=== PATIENT | female | born 1980 | race Caucasian/White ===

== ENCOUNTER 2021-02-07 15:26 | Emergency (ER) | payer MEDICARE, MEDICAID, SELFPAY ==
--- NOTE | ~2021-02-07 | XR_ITS ---
EXAMINATION: XR chest 1V portable INDICATION: Cough TECHNIQUE: Portable AP chest at 1806 hours COMPARISON: None available FINDINGS: There are patchy bilateral airspace opacities. No pleural effusion or pneumothorax is ident ified. The cardiomediastinal silhouette is normal. IMPRESSION: 1. Patchy bilateral airspace opacities, consistent with atelectasis versus pneumonia. Reviewed, dictated and finalized at location A. IMPRESSION: 1. Patchy bilateral airspace opacities, consistent with atelectasis versus pneu monia.
[2021-02-07 15:38] VITALS: BP 119/69; PULSE 98; RESP 16; TEMP 36.8; O2SAT 100
[2021-02-07 18:29] VITALS: BP 113/77; PULSE 64; RESP 18; O2SAT 100
--- NOTE | 2021-02-07 18:39 | ED.GENADULT ---
HPI - General Adult General Chief complaint: Upper Respiratory Infection Stated complaint: i got a cold I dont feel good Time Seen by Provider: 02/07/21 17:37 History of Present Illness HPI narrative: Patient is a 40-year-old female who presents ER with upper respiratory infection. Reports she has been having sinus congestion with cough for the last 2 to 3 days. Her mother is also sick and is being evaluated for Covid. No loss of taste or smell. She has no additional complaints at this time. No alleviating factors. No worsening factors. Related Data Allergies Allergy/AdvReac Type Severity Reaction Status Date / Time No Known Allergies Allergy Verified 02/07/21 18:51 Review of Systems Review of Systems: All systems reviewed & are unremarkable except as noted in HPI and below Constitutional: Constitutional: Denies chills, Reports fatigue and Denies fever(s) ENT: Reports nasal congestion and Reports sore throat Cardiovascular: Cardiovascular: Denies chest pain and Denies radiating jaw, neck or arm pain Respiratory: Respiratory: Reports cough, Denies dyspnea and Denies wheezing Gastrointestinal: Gastrointestinal: Denies nausea and Denies vomiting PMFSH Past Medical History Medical History (Updated 02/07/21 @ 18:58 by You Mitchell MD) Autism Diabetes Surgical History Surgical History (Updated 02/07/21 @ 18:40 by You Mitchell MD) No pertinent past surgical history Social History Social History (Updated 02/07/21 @ 18:40 by You Mitchell MD) Smoking status: Never smoker Gender identity (if verbalized by the patient): Female Exam Narrative: GENERAL: Well-appearing, well-nourished, and in no acute distress. HEAD: Normocephalic, atraumatic. CHEST: Clear to auscultation. No respiratory distress. HEART: Regular rate and rhythm. Normal peripheral pulses. ABDOMEN: Soft, nontender, nondistended. EXTREMITIES: Normal range of motion. No edema. NEURO: Alert and oriented x3. PSYCH: Normal mood and affect. Course Course Emergency Course: Patient and family informed of results. Discussed treatment plan. They verbalized understanding. Vital Signs Vital signs: Vital Signs Temperature 98.3 F 02/07/21 15:38 Pulse Rate 98 02/07/21 15:38 Respiratory Rate 16 02/07/21 15:38 Blood Pressure 119/69 02/07/21 15:38 Pulse Oximetry 100 02/07/21 15:38 Temperature 98.3 F 02/07/21 15:38 Pulse Rate 64 02/07/21 18:29 Respiratory Rate 18 02/07/21 18:29 Blood Pressure 113/77 02/07/21 18:29 Pulse Oximetry 100 02/07/21 18:29 Medical Decision Making Vital Signs Vital Signs: Vital Signs Temperature 98.3 F 02/07/21 15:38 Pulse Rate 98 02/07/21 15:38 Respiratory Rate 16 02/07/21 15:38 Blood Pressure 119/69 02/07/21 15:38 Pulse Oximetry 100 02/07/21 15:38 Temperature 98.3 F 02/07/21 15:38 Pulse Rate 64 02/07/21 18:29 Respiratory Rate 18 02/07/21 18:29 Blood Pressure 113/77 02/07/21 18:29 Pulse Oximetry 100 02/07/21 18:29 Imaging Data Radiologist's impression: ITS Impressions Chest X-Ray 02/07/21 18:36 IMPRESSION: 1. Patchy bilateral airspace opacities, consistent with atelectasis versus pneumonia. Discharge Plan Discharge Clinical Impression: Pneumonia, Person under investigation for COVID-19 Patient Disposition: Home, Self-Care Condition: Stable Instructions: Pneumonia (ED), COVID-19 (Coronavirus Disease 2019) (ED) Additional Instructions: There is high suspicion for you having COVID-19. You had a swab here, please self isolate until you receive your results. You are also found to have pneumonia on your chest x-ray. You are being started on an antibiotic and an inhaler. Return to the ER if you have increasing shortness of breath, you cannot keep down food or water, or you have any additional concerns. Prescriptions: New azithromycin 250 mg tablet See Rx Instructions .ROUTE .C
[2021-02-07 19:16] VITALS: BP 113/77; PULSE 64; RESP 18; O2SAT 100
[2021-02-08 13:59] LABS: SARS-CoV-2 RNA PCR Positive
== END 2021-02-07 19:18 | disposition home or self-care (01) ==
PROVIDERS: Emergency Provider Emergency Medicine
DX: U07.1 COVID-19 (principal); J12.82 Pneumonia due to coronavirus disease 2019; E11.9 Type 2 diabetes mellitus without complications; F84.0 Autistic disorder
CPT/HCPCS: 71045; 99283; C9803; U0003; U0005